=== PATIENT | male | born 1975 | race Caucasian/White ===

== ENCOUNTER 2017-07-21 22:36 | Emergency (ER) | payer BC ==
[~2017-07-21] VITALS: Ht 170.2 cm; Wt 74.5 kg
[2017-07-21 22:50] VITALS: BP 151/99
--- NOTE | 2017-07-21 22:57 | NUR ---
PT TAKEN TO BED 11
--- NOTE | 2017-07-21 23:05 | NUR ---
42/M CAME IN W C/O HEADACHE AND DIZZINESS S/P FALLING FROM [place] AT 1615 TODAY. PT STATES HE HIT HIS HEAD ON THE GROUND BUT DENIES LOC. DENIES N/V,BLURRY VISION,NO EAR/NASAL DISCHARGES, SCALP INTACT. GCS 15, AOX4. ALL LUNG SOUNDS CBTA, 18RR EVEN AND UNLABORED. HR EVEN AND REGULAR. AMBULATORY WITH STEADY GAIT. DENIES PMH/RX, REPORTS TAKING 2 ADVIS WITH RELIEF OF SYMPTOMS
--- NOTE | 2017-07-21 23:05 | NUR ---
Dr. Reich evaluating patient at bedside.
--- NOTE | 2017-07-21 23:16 | NUR ---
PT RETURN FROM CT
[2017-07-21 23:37] LABS: HEMATOCRIT 44.5 % (36-52); HEMOGLOBIN 14.7 g/dL (12.0-18.0); MEAN CORPUSCULAR HEMOGLOBIN 31 pg (27-31); MEAN CORPUSCULAR HGB CONC 33 g/dL (33-37); MEAN CORPUSCULAR VOLUME 94 fL (80-94); PLATELET COUNT (AUTO) 187 K/uL (140-450); RED BLOOD CELL COUNT(AUTO) 4.75 MIL/uL (4.20-6.10); RED CELL DISTRIBUTION WIDTH 12.2 % (11.6-13.7); WHITE BLOOD COUNT (AUTO) 8.5 K/uL (4.8-10.8)
[2017-07-21 23:46] LABS: ALBUMIN 3.9 g/dL (3.4-5.0); ANION GAP 6.4 (8-16); CARBON DIOXIDE 30.7 mmol/L (21-32); CREATININE 0.9 mg/dL (0.7-1.3); POTASSIUM 4.1 mmol/L (3.5-5.1); TOTAL BILIRUBIN 0.3 mg/dL (0.0-1.0)
--- NOTE | 2017-07-21 23:52 | NUR ---
Patient discharged with v/s stable. Written and verbal after care instructions given and explained. Patient verbalized understanding. Ambulatory with steady gait. All questions addressed prior to discharge. Advised to follow up with PMD.
[2017-07-22 00:01] VITALS: BP 134/89
[2017-07-22 00:04] LABS: EOSINOPHILS % (MANUAL) 4 % (0-4); LYMPHOCYTES % (MANUAL) 60 % (20-46); MONOCYTES % (MANUAL) 3 % (5-12)
== END 2017-07-21 23:52 | disposition home or self-care (01) ==
LOC: MED 22:36
DX: S09.90XA Unspecified injury of head, initial encounter (principal); R03.0 Elevated blood-pressure reading, without diagnosis of hypertension; Z88.0 Allergy status to penicillin; W19.XXXA Unspecified fall, initial encounter; Y93.89 Activity, other specified; Y92.89 Other specified places as the place of occurrence of the external cause; Y99.8 Other external cause status
CPT/HCPCS: 36415; 70450; 80053; 85025; 99285